=== PATIENT | male | born 1975 | race Caucasian/White ===

== ENCOUNTER 2017-12-12 13:14 | Emergency (ER) | payer SELFPAY ==
[~2017-12-12] VITALS: Ht 170.2 cm; Wt 77.1 kg
[2017-12-12 13:14] VITALS: BP 146/93
== END 2017-12-12 13:34 | disposition home or self-care (01) ==
LOC: ER 13:17
DX: I10 Essential (primary) hypertension (principal); Z88.6 Allergy status to analgesic agent
CPT/HCPCS: A4606; Z7502; Z7610